=== PATIENT | female | born 2005 | race Hispanic/Latino ===

== ENCOUNTER 2024-04-22 19:11 | Emergency (ER) | payer MEDICARE ==
[~2024-04-22] VITALS: Ht 157.5 cm; Wt 54.4 kg
[2024-04-22] MEDS ORDERED: SODIUM CHLORIDE 0.9% 1000ML 1,000 ML IV ONE (19:30)
[2024-04-22 19:32] VITALS: PULSE 82; RESP 16; TEMP 97.3; O2SAT 97
[2024-04-22] MEDS: PROMETHAZINE HCL (IM) 25 MG/ML VIAL IM ONE (20:38)
[2024-04-22] MEDS ORDERED: PROMETHAZINE HC25 M1 PO (22:09)
[2024-04-22 22:24] VITALS: BP 121/76; PULSE 78; RESP 18; TEMP 97.3
== END 2024-04-22 22:24 | disposition home or self-care (01) ==
LOC: FSED 19:21
DX: O20.8 Other hemorrhage in early pregnancy (principal)
CPT/HCPCS: 36415; 76801; 76830; 80053; 80307; 81003; 84702; 85025; 85610; 86850; 86900; 99284; J2550; J7030

== ENCOUNTER 2024-09-17 06:25 | Emergency (ER) | payer OTHER ==
[~2024-09-17] VITALS: Ht 157.5 cm; Wt 66.2 kg
[~2024-09-17 06:25] MED LIST: PROMETHAZINE HC25 M1 PO
[2024-09-17] MEDS ORDERED: DIPHENHYDRAMINE25 M2 PO (07:22)
[2024-09-17] MEDS ORDERED: TYLENOL325 MG PO (07:22)
[2024-09-17] MEDS ORDERED: TAMIFLU75 MG PO (07:22)
[2024-09-17 07:34] VITALS: PULSE 120; RESP 18; TEMP 98.5; O2SAT 98
== END 2024-09-17 07:34 | disposition home or self-care (01) ==
LOC: FSED 06:50
DX: R05.9 Cough, unspecified (principal); J11.1 Influenza due to unidentified influenza virus with other respiratory manifestations; R00.0 Tachycardia, unspecified; R53.81 Other malaise; Z33.1 Pregnant state, incidental
CPT/HCPCS: 0223U; 36415; 81003; 82948; 87400; 99283